=== PATIENT | female | born 1945 ===

== ENCOUNTER 2018-08-22 09:26 | Emergency (ER) | payer MEDICARE ==
[2018-08-22 09:26] VITALS: BMI 26.2
--- NOTE | 2018-08-22 10:34 | C.PDOC ---
History Of Present Illness Patient is a 73 year old female with pmhx of depression/anxiety, HTN, CAD, aortic stenosis presents to ED accompanied by son-in-law for evaluation of depression/anxiety since early June. Patient reports symptoms started after her grandson was newly diagnosed with epilepsy. Patient reports overwhelming feelings of sadness, hopelessness, decreased appetite w/ 10+ lb weight loss, anhedonia, racing thoughts, and insomnia for 2 months. Patient reports she sleeps no more than 2 hours per night. Denies SI/HI. Patient had similar symptoms requiring inpatient psych hospitalization in 2016 s/p valve replacement. Patient sought treatment from [facility] recently, restarting Clonazepam, and adding Lexapro and Remeron with worsening of symptoms. Denies complaints of chest pain, SOB, thyroid dysfunction. <Maame Dillard - Last Filed: 08/22/18 16:18> <Madeleine Ibrahim - Last Filed: 08/22/18 11:32> History Per: Patient History/Exam Limitations: no limitations Onset/Duration Of Symptoms: Other (2 months) Current Symptoms Are (Timing): Worse Suicide/Self Injury Attempted (Context): None Modifying Factor(s): None Associated Symptoms: Anxiety, Depression. denies: Suicidal Thoughts Additional History Per: Family <Maame Dillard - Last Filed: 08/22/18 16:18> Chief Complaint (Nursing): Psychiatric Evaluation Past Medical History Vital Signs: Last Vital Signs Temp 98.2 F 08/22/18 09:41 Pulse 69 08/22/18 09:41 Resp 18 08/22/18 09:41 BP 135/74 08/22/18 09:41 Pulse Ox 99 08/22/18 11:30 - [facility] CORONAR ARTERIOGR-2 CATH (09/02/14) LARYGNOSCOPY AND OTH TRACHEOSCOPY (09/10/14) RT & LT HEART ANGIOCARD (09/02/14) RT/LEFT HEART CARD CATH (09/02/14) <Madeleine Ibrahim - Last Filed: 08/22/18 11:32> Vital Signs: Last Vital Signs Temp 98.2 F 08/22/18 09:41 Pulse 69 08/22/18 09:41 Resp 18 08/22/18 09:41 BP 135/74 08/22/18 09:41 Pulse Ox 99 08/22/18 09:41 - Medical History PMH: Anxiety, CAD (Aortic Stenosis, Regurg), Depression, HTN, Mitral Valve Prolapse Denies: Chronic Kidney Disease Surgical History: Coronary Stent - [facility] Procedures CORONAR ARTERIOGR-2 CATH (09/02/14) LARYGNOSCOPY AND OTH TRACHEOSCOPY (09/10/14) RT & LT HEART ANGIOCARD (09/02/14) RT/LEFT HEART CARD CATH (09/02/14) Family History: States: Unknown Family Hx - Social History Hx Tobacco Use: Yes Hx Alcohol Use: No Hx Substance Use: No - Immunization History Hx Tetanus Toxoid Vaccination: No Hx Influenza Vaccination: No Hx Pneumococcal Vaccination: No <Maame Dillard - Last Filed: 08/22/18 16:18> Review Of Systems Constitutional: Positive for: Weight loss Cardiovascular: Negative for: Chest Pain Respiratory: Negative for: Cough, Shortness of Breath Gastrointestinal: Positive for: Other (abdominal discomfort/gas/bloating) Genitourinary: Negative for: Dysuria Psych: Positive for: Anxiety, Depression. Negative for: Suicidal ideation <Maame Dillard - Last Filed: 08/22/18 16:18> Physical Exam - Physical Exam Appears: Non-toxic, Other (Emotional/crying) Skin: Normal Color, Warm, Dry Head: Atraumatic, Normacephalic Eye(s): bilateral: Normal Inspection, PERRL, EOMI Oral Mucosa: Moist Throat: Normal Neck: Normal Cardiovascular: Rhythm Regular Respiratory: Normal Breath Sounds, No Accessory Muscle Use Gastrointestinal/Abdominal: Normal Exam, Bowel Sounds, Soft, No Tenderness, No Distention Extremity: No Pedal Edema, No Calf Tenderness Neurological/Psych: Oriented x3 <Maame Dillard - Last Filed: 08/22/18 16:18> ED Course And Treatment - Laboratory Results Result Diagrams: 08/22/18 11:44 08/22/18 11:44 ECG: Viewed By Me ECG Rhythm: Sinus Bradycardia, 1st Degree HB O2 Sat by Pulse Oximetry: 99 - Radiology CXR: Viewed By Me, Read By Radiologist <Maame Dillard Last Filed: 08/22/18 16:18> Supervising Attending Note - Supervising Attending Note Comment: RESIDENT - Attestation: I have personally seen and examined this patient.: Yes I have fully participated in the care of the patient.: Yes I have reviewed all pertinent clinical information, including history, physical exam and plan: Yes - Notes: Notes:: WORSENING DEPRESISON ANXIETY SINCE 06/2018. +WT LOSS, INCREASED EMOTIONS, C ONSTANTLY CRYING. LIVES ALONE BUT FAMILY CLOSE BY. HO PRIOR PSYCH ADMISSION FOR SAME. NO RELIEF W CURRENT PSYCH MEDS. EXAM ABOVE <Madeleine Ibrahim - Last Filed: 08/22/18 11:32> Medical Decision Making Medical Decision Makin73 year old female seeking voluntary treatment of depression Psych Labs CBC/CMP UA/UDS EKG CXR AES crisis eval Patient medically cleared for treatment <DillardMaame - Last Filed: 08/22/18 16:18> Disposition <Madeleine Ibrahim - Last Filed: 08/22/18 11:32> Comment: Patient to be transferred to [facility], admission per Dr. Orozco Doctor Will See Patient In The: Hospital Counseled Patient/Family Regarding: Studies Performed, Diagnosis, Need For Followup - Disposition Disposition Time: 16:14 - POA Present On Arrival: None <Maame Dillard - Last Filed: 08/22/18 16:18> - Disposition Disposition: Trans to Other Acute Care Hosp Condition: FAIR Additional Instructions: Patient medically cleared for treatment. Recommend further medical evaluation as needed. Instructions: Depression, Adult (DC) Forms: [facility] ([place]izen [place]) - Clinical Impression Clinical Impression: Moderate major depression, single episode
[2018-08-22 11:52] VITALS: RESP 16
[2018-08-22 11:52] LABS: BASO % 0.5 % (0.0-2.0); EOS # 0.1 K/uL (0.0-0.7); EOS % 1.2 % (0.0-4.0); HEMOGLOBIN 11.6 g/dL (11.0-16.0); LYMPH # 1.5 K/uL (1.0-4.3); LYMPH % 18.5 % (20.0-40.0); MEAN CORPUSCULAR HEMOGLOBIN 27.6 pg (27.0-31.0); MEAN CORPUSCULAR HGB CONC 33.8 g/dL (33.0-37.0); MEAN PLATELET VOLUME 8.5 fL (7.2-11.7); MONO # 0.7 K/uL (0.0-0.8); MONO % 8.3 % (0.0-10.0); NEUT # 5.9 K/uL (1.8-7.0); NEUT % 71.5 % (50.0-75.0); RBC 4.2 Mil/uL (3.80-5.20); RED CELL DISTRIBUTION WIDTH 14.1 % (11.5-14.5); WHITE BLOOD COUNT 8.3 K/uL (4.8-10.8)
[2018-08-22 11:53] LABS: MEAN CELL VOLUME 81.7 fL (81.0-99.0)
[2018-08-22 11:55] LABS: SQUAMOUS EPITHIAL 1 /hpf (0-5); URINE BILIRUBIN NEGATIVE (NEGATIVE); URINE BLOOD NEGATIVE (NEGATIVE); URINE CLARITY Clear (Clear); URINE COLOR Yellow (YELLOW); URINE GLUCOSE (UA) NORMAL (Normal); URINE LEUKOCYTE ESTERASE TRACE Leu/uL (Negative); URINE PROTEIN NEGATIVE (NEGATIVE); URINE UROBILINOGEN NORMAL mg/dL (0.2-1.0)
[2018-08-22 12:03] LABS: ALB/GLOB RATIO 1.5 (1.0-2.1); ALBUMIN 4.6 g/dL (3.5-5.0); AST/SGOT 28 U/L (14-36); BLOOD UREA NITROGEN 13 mg/dL (7-17); CALCIUM 9.5 mg/dl (8.6-10.4); GFR NON-AFRICAN AMERICAN 55
[2018-08-22 12:11] LABS: ALT/SGPT < 6 U/L (9-52); BARBITURATES, UR NEGATIVE (NEGATIVE); BENZODIAZEPINES, UR NEGATIVE (NEGATIVE); OPIATES, UR NEGATIVE (NEGATIVE); PHENCYCLIDINE, UR NEGATIVE (NEGATIVE)
--- NOTE | 2018-08-22 12:30 | RAD ---
Date of service: 08/22/2018 PROCEDURE: CHEST RADIOGRAPH, 1 VIEW HISTORY: Detox/Psy COMPARISON: 09/12/2014 FINDINGS: LUNGS: No consolidation. PLEURA: No pneumothorax or pleural fluid seen. CARDIOVASCULAR: There is presence of aortic atherosclerotic calcification on x-ray. Cardiomegaly-similar. Thoracic aorta is tortuous-the ascending aortic component of it more bulbous the prominent-current lung volumes are less pronounced than before no increased the prominence to the right paratracheal-inferred vascular markings here are also noted. These areas of relative increased bulbous prominence of the ascending aorta right hilum and right paratracheal soft tissues may be technical. Clinical correlation with patient's presentation is needed. OSSEOUS STRUCTURES: Interval midline sternotomy. Bilateral shoulder arthrosis. VISUALIZED UPPER ABDOMEN: Normal. OTHER FINDINGS: None. IMPRESSION: Current inspiration appears less than before be contributing to the relative prominent bulbous in this of the ascending aorta/right hilum right paratracheal soft tissues compared to prior study. Correlation with patient's presentation is needed. Midline sternotomy. Atherosclerotic vascular disease. Other findings as above. Comments: Study marked for PA review .
[2018-08-22 16:56] VITALS: BP 127/77; PULSE 63; TEMP 98.6; O2SAT 96
--- NOTE | 2018-08-23 16:36 | CARD ---
APPROVED REPORT Date of service: 08/22/2018 EKG Measurement Heart [id number] <Conclusion> Sinus bradycardia with 1st degree AV block Right ventricular hypertrophy Septal infarct, age undetermined Lateral infarct, age undetermined Abnormal ECG PLEASE REPEAT
== END 2018-08-22 17:01 | disposition short-term general hospital (02) ==
LOC: C.ER 09:26
DX: F32.1 Major depressive disorder, single episode, moderate (principal); I25.10 Atherosclerotic heart disease of native coronary artery without angina pectoris; I10 Essential (primary) hypertension; Z95.2 Presence of prosthetic heart valve
CPT/HCPCS: 71045; 80053; 81001; 83735; 84100; 85025; 93005; 99285; G0480